=== PATIENT | female | born 1970 | race Caucasian/White ===

== ENCOUNTER 2021-09-29 05:40 | Day surgery (SDC) | payer OTHER | END 2021-09-29 23:00 | disposition home or self-care (01) | LOC: CIR.AMB 05:40 | PROVIDERS: ATTEND Obstetrics & Gynecology | DX: N87.0 Mild cervical dysplasia (principal); Z20.822 Contact with and (suspected) exposure to COVID-19; F32.1 Major depressive disorder, single episode, moderate; E66.9 Obesity, unspecified ==